=== PATIENT | male | born 1980 | race Two or more races ===

== ENCOUNTER 2018-12-05 10:32 | Outpatient (CLI) | payer OTHER | END 2018-12-05 10:43 | disposition home or self-care (01) | LOC: LAB 10:32 | DX: N40.0 Benign prostatic hyperplasia without lower urinary tract symptoms (principal) ==

== ENCOUNTER → 2019-01-17 | Outpatient (CLI) | payer OTHER | END | disposition home or self-care (01) | LOC: RAD 13:47 | DX: M25.532 Pain in left wrist (principal) ==

== ENCOUNTER 2019-06-16 09:02 | Outpatient (CLI) | payer OTHER | END 2019-06-16 09:17 | disposition home or self-care (01) | LOC: LAB 09:02 | DX: N40.1 Benign prostatic hyperplasia with lower urinary tract symptoms (principal) ==

== ENCOUNTER 2019-07-02 07:44 | Outpatient (CLI) | payer OTHER | END 2019-07-02 07:45 | disposition home or self-care (01) | LOC: SONOGRAMA 07:44 | DX: E04.1 Nontoxic single thyroid nodule (principal) ==

== ENCOUNTER 2022-04-19 08:13 | Outpatient (CLI) | payer OTHER | END 2022-04-19 08:22 | disposition home or self-care (01) | LOC: SONOGRAMA 08:13 | DX: E80.6 Other disorders of bilirubin metabolism (principal) ==

== ENCOUNTER 2023-02-04 08:20 | Outpatient (CLI) | payer OTHER | END 2023-02-04 08:40 | disposition home or self-care (01) | LOC: SONOGRAMA 08:20 | DX: N20.0 Calculus of kidney (principal) ==

== ENCOUNTER 2024-03-06 12:09 | Outpatient (CLI) | payer OTHER | END 2024-03-06 12:21 | disposition home or self-care (01) | LOC: SONOGRAMA 12:09 | DX: E03.9 Hypothyroidism, unspecified (principal) ==